=== PATIENT | female | born 1980 | race Hispanic/Latino ===

== ENCOUNTER 2022-04-04 13:48 | Emergency (ER) | payer BC, OTHER ==
[2022-04-04 15:07] LABS: #Basophils 0.1 thou/uL (0.0-0.2); #Lymphocytes 3.2 thou/uL (1.20-3.40); #Monocytes 0.4 thou/uL (0.11-0.59); #Neutrophils 7.6 thou/uL (1.40-6.50); %Basophils 0.7 % (0.0-1.0); %Eosinophils 0.1 % (0.0-10.0); %Monocytes 3.4 % (0.0-10.0); %Neutrophils 67.8 % (42.0-75.0); Hemoglobin 14.1 g/dL (12.0-16.0); Mean Corpuscular Volume 84.9 fL (78.0-98.0); Mean Platelet Volume 7.6 fL (7.4-10.4); Platelet Count 327 thou/uL (130-400); RBC Distribution Width 14.8 % (11.5-14.5); Red Blood Cell (RBC) Count 5.03 mill/uL (4.20-5.40); White Blood Cell (WBC) Count 11.2 thou/uL (4.8-10.8)
[2022-04-04] MEDS ORDERED: Albuterol 200 PUFF (6.7GM INHALER) ONE (15:16)
[2022-04-04 15:55] LABS: Anion Gap 16 mmol/L (10-20); BUN (Urea Nitrogen) 10 mg/dL (7.0-18.7); Calc. Creatinine Clearance 0 mL/min (70-130); Carbon Dioxide 27 mmol/L (22-29); Chloride 99 mmol/L (98-107); Sodium 138 mmol/L (136-145)
[2022-04-04 15:56] LABS: ALT (SGPT) 24 U/L (8-55); AST (SGOT) 29 U/L (5-34); Alkaline Phosphatase 87 U/L (40-110); Bilirubin, Total 0.4 mg/dL (0.2-1.2); Estimated GFR 80; Globulin 4.4 g/dL (2.4-3.5); Glucose 124 mg/dL (70-105); Lipase 22 U/L (8-78); Protein, Total 8.4 g/dL (6.0-8.3)
== END 2022-04-04 17:03 | disposition home or self-care (01) ==
LOC: ERS 13:48
DX: I49.3 Ventricular premature depolarization (principal)
CPT/HCPCS: 71045; 80053; 83690; 83880; 84484; 85025; 93005

== ENCOUNTER 2024-01-08 10:39 | Outpatient (CLI) | payer BC | END 2024-01-08 10:40 | disposition home or self-care (01) | LOC: DTY/OP 10:39 | PROVIDERS: ATTEND Surgery | DX: E66.01 Morbid (severe) obesity due to excess calories (principal) | CPT/HCPCS: 97802 ==

== ENCOUNTER 2024-04-01 14:00 | Inpatient (IN) | payer BC ==
[2024-04-05] MEDS ORDERED: Rocuronium Bromide 10 MG/ML (10ML VIAL) ONE (06:35)
[2024-04-05] MEDS ORDERED: SUGAMMADEX SODIUM 200 MG/2 ML VIAL ONE ×2 (06:35→08:00)
[2024-04-05] MEDS ORDERED: Dexamethasone 4 mg/ml Vial ONE (06:35)
[2024-04-05] MEDS ORDERED: Lidocaine 1% PF 5 ML VIAL ONE (06:35)
[2024-04-05] MEDS ORDERED: Fentanyl 250 MCG/5 ML VIAL ONE (06:35)
[2024-04-05] MEDS ORDERED: Ondansetron PF 4 MG/2 ML Vial ONE ×2 (06:35→11:12)
[2024-04-05] MEDS ORDERED: PROPOFOL 20 ML ONE (06:35)
[2024-04-05] MEDS ORDERED: EPINEPHrine 1 MG/ML VIAL ONE (06:40)
[2024-04-05] MEDS ORDERED: Bupivacaine 0.25% HCL 30 ML VIAL ONE (06:40)
[2024-04-05] MEDS ORDERED: Sodium Chloride 0.9% 100 ML ONE (07:22)
[2024-04-05] MEDS ORDERED: Heparin 5,000 UNITS/ML VIAL ONE (07:22)
[2024-04-05] MEDS ORDERED: CEFAZOLIN 2 GM VIAL ONE (07:22)
[2024-04-05] MEDS ORDERED: Indocyanine Green 25 MG/10 ML VIAL ONE (07:25)
[2024-04-05] MEDS ORDERED: Ondansetron HCl/PF 4 MG/2 ML Vial IVP PRN (09:01)
[2024-04-05] MEDS ORDERED: Promethazine HCl 25 MG/ML VIAL IM PRN ×3 (09:01→09:44)
[2024-04-05] MEDS ORDERED: Ondansetron PF 4 MG/2 ML Vial IVP PRN ×2 (09:17→09:44)
[2024-04-05] MEDS ORDERED: diphenhydrAMINE 50 MG/ML VIAL IVP PRN ×2 (09:17→09:44)
[2024-04-05] MEDS ORDERED: Ipratropium/Albuterol 3 ML NEB NEB PRN (09:17)
[2024-04-05] MEDS ORDERED: Dextrose 5% in Water 1,000 ML IV PRN (09:17)
[2024-04-05] MEDS ORDERED: Glucagon 1 MG/ML KIT IM PRN (09:17)
[2024-04-05] MEDS ORDERED: Dextrose 50% Abboject 50 ML SYRINGE SLOW IVP PRN (09:17)
[2024-04-05] MEDS ORDERED: hydrALAZINE 20 MG/ML VIAL SLOW IVP PRN (09:17)
[2024-04-05] MEDS ORDERED: Acetaminophen W/ Codeine 5 ML UDCUP PO PRN (09:20)
[2024-04-05] MEDS ORDERED: fentaNYL PF 100 MCG/2 ML SYRINGE ONE (09:31)
[2024-04-05] MEDS ORDERED: diphenhydrAMINE 50 MG/ML VIAL IM PRN (09:44)
[2024-04-05] MEDS ORDERED: Naloxone HCl 0.4 mg/ml Vial IV PRN (09:44)
[2024-04-05] MEDS ORDERED: FENTANYL 500 MCG/10 ML VIAL 2,000 MCG in Sodium Chloride 0.9% 60 ML IV PRN (09:44)
[2024-04-05] MEDS ORDERED: diphenhydrAMINE 25 MG CAP PO PRN (09:44)
[2024-04-05] MEDS ORDERED: Communication Order-Pharmacy FS SCH (09:45)
[2024-04-05] MEDS ORDERED: fentaNYL 50 mcg/mL 1 mL Vial ONE (10:23)
[2024-04-05] MEDS ORDERED: D5 1/2 NS w/20 mEq KCL 1,000 ML ONE (13:56)
[2024-04-05] MEDS ORDERED: Ketorolac Tromethamine 30 MG (1 mL) VIAL ONE (14:02)
[2024-04-05] MEDS: Ketorolac Tromethamine 30 MG (1 mL) VIAL IVP SCH (15:21)
[2024-04-05] MEDS: D5 1/2 NS w/20 mEq KCL 1,000 ML IV SCH (16:07)
[2024-04-05] MEDS: CEFAZOLIN 2 GM in Sodium Chloride 0.9% 100 ML IVPB SCH (16:15)
[2024-04-05 16:50] VITALS: BMI 62.6
[2024-04-06] MEDS: Enoxaparin 40 MG (0.4 mL) SYRINGE SC SCH (05:44)
[2024-04-06 06:07] VITALS: TEMP 98.5
[2024-04-06 06:15] LABS: #Basophils Less than 0.03 10x3/uL (0.0-0.2); #Eosinphils Less than 0.03 10x3/uL (0.0-0.7); %Basophils 0.1 % (0.0-1.0); %Eosinophils 0.1 % (0.0-10.0); %Lymphocytes 20.1 % (21.0-51.0); %Monocytes 6.8 % (0.0-10.0); %Neutrophils 72.7 % (42.0-75.0); Hematocrit 40.4 % (36.0-47.0); Hemoglobin 13.4 g/dL (12.0-16.0); Mean Corpuscular HGB CONC 33.2 g/dL (32.0-36.0); Mean Corpuscular Hemoglobin 28.4 pg (27.0-31.0); Mean Corpuscular Volume 85.6 fL (78.0-98.0); Mean Platelet Volume 9.8 fL (7.4-10.4); Platelet Count 288 10x3/uL (130-400); RBC Distribution Width 14.7 % (11.5-14.5); Red Blood Cell (RBC) Count 4.72 mill/uL (4.20-5.40)
[2024-04-06 06:33] LABS: Anion Gap 14 mmol/L (10-20); BUN (Urea Nitrogen) 7 mg/dL (7.0-18.7); Calc. Creatinine Clearance 205 mL/min (70-130); Calcium 8.8 mg/dL (7.8-10.44); Carbon Dioxide 24 mmol/L (22-29); Chloride 103 mmol/L (98-107); Estimated GFR 93; Glucose 172 mg/dL (70-105); Potassium 3.8 mmol/L (3.5-5.1); Sodium 137 mmol/L (136-145)
[2024-04-06] MEDS: Pantoprazole 40 MG VIAL IVP SCH (08:55)
[2024-04-06] MEDS: Acetaminophen W/ Codeine 5 ML UDCUP PO PRN (08:55)
[2024-04-06 11:48] VITALS: BP 144/89
[2024-04-07] MEDS ORDERED: Enoxaparin 40 MG (0.4 mL) SYRINGE SC SCH (09:00)
== END 2024-04-06 16:33 | disposition home or self-care (01) | DRG 418 ==
LOC: SURG A 04-05 06:14
PROVIDERS: ADMIT Surgery; ATTEND Surgery
PROC: 0DB64Z3 Excision of Stomach, Percutaneous Endoscopic Approach, Vertical (ICD-10-PCS; principal; 2024-04-05)
PROC: 0FT44ZZ Resection of Gallbladder, Percutaneous Endoscopic Approach (ICD-10-PCS; 2024-04-05)
PROC: 8E0W4CZ Robotic Assisted Procedure of Trunk Region, Percutaneous Endoscopic Approach (ICD-10-PCS; 2024-04-05)
DX: K81.1 Chronic cholecystitis (principal); Z68.44 Body mass index [BMI] 60.0-69.9, adult; E66.01 Morbid (severe) obesity due to excess calories; Z79.899 Other long term (current) drug therapy; F41.9 Anxiety disorder, unspecified; E11.9 Type 2 diabetes mellitus without complications; F32.A Depression, unspecified; D64.9 Anemia, unspecified; Z98.51 Tubal ligation status; Z98.890 Other specified postprocedural states
CPT/HCPCS: 36415; 80048; 85025; 88304; 88307; 94760; C1889; J0171; J0665; J1100; J1644; J1650; J1885; J2405; J2470; J2704; J3010; J3480

== ENCOUNTER 2025-06-29 17:32 | Inpatient (IN) | payer BC ==
[~2025-06-29 17:32] MED LIST: GASTROGRAFIN 30 ML BOT ONE; Iopamidol-370 76% 500 ML MDV (1 ML CHARGE) ONE
[2025-06-29 18:38] LABS: #Basophils 0.04 10x3/uL (0.0-0.2); #Eosinophils Less than 0.03 10x3/uL (0.0-0.7); #Monocytes 0.40 10x3/uL (0.11-0.59); #Neutrophils 3.73 10x3/uL (1.40-6.50); %Basophils 0.5 % (0.0-1.0); %Eosinophils 0.1 % (0.0-10.0); %Lymphocytes 44.7 % (21.0-51.0); %Monocytes 5.3 % (0.0-10.0); %Neutrophils 49.1 % (42.0-75.0); Hematocrit 39.8 % (36.0-47.0); Hemoglobin 13.1 g/dL (12.0-16.0); Mean Corpuscular Hemoglobin 27.0 pg (27.0-31.0); Mean Corpuscular Volume 82.1 fL (78.0-98.0); Platelet Count 335 10x3/uL (130-400); Red Blood Cell (RBC) Count 4.85 mill/uL (4.20-5.40); White Blood Cell (WBC) Count 7.60 10x3/uL (4.8-10.8)
[2025-06-29 18:50] LABS: Bacteria/HPF None Seen HPF (None Seen); CAUTI Indications for Culture Pelvic or flank pain; Glucose, Urine (Dipstick) Normal (Negative); Leukocyte Negative Leu/uL (Negative); Protein, Urine (Dipstick) Negative (Neg-Trace); RBC/HPF None Seen HPF (0-3); Specific Gravity, Urine 1.004 (1.002-1.036); WBC/HPF None Seen HPF (0-3)
[2025-06-29 18:59] LABS: Anion Gap 15 mmol/L (10-20); Chloride 102 mmol/L (98-107); Potassium 3.9 mmol/L (3.5-5.1); Sodium 139 mmol/L (136-145)
[2025-06-29 19:00] LABS: Urine Culture Reflex No No
[2025-06-29 19:04] LABS: ALT (SGPT) 16 U/L (Less than 34); AST (SGOT) 27 U/L (11-34); Albumin 3.7 g/dL (3.1-4.5); Alkaline Phosphatase 75 U/L (40-110); BUN (Urea Nitrogen) 11 mg/dL (7.0-18.7); Bilirubin, Total 0.2 mg/dL (0.3-1.2); Calc. Creatinine Clearance 0 mL/min (70-130); Calcium 9.5 mg/dL (7.8-10.44); Globulin 3.8 g/dL (2.4-3.5); Glucose 96 mg/dL (70-105); Lipase 51 U/L (8-78); Magnesium 2.5 mg/dL (1.6-2.6)
[2025-06-29 19:06] LABS: BHCG - Serum Negative (NEGATIVE); Pregs Control Background? CLEAR/WHITE (CLR/WHITE); Pregs Control Bar Appear? YES (CONTROL BAR)
[2025-06-29 19:07] LABS: Carbon Dioxide 26 mmol/L (22-29)
[2025-06-29] MEDS ORDERED: Acetaminophen 325 MG TAB PO PRN (21:15)
[2025-06-29 22:07] VITALS: BMI 53.3
[2025-06-29] MEDS: Ondansetron PF 4 MG/2 ML Vial IVP PRN (22:18)
[2025-06-29] MEDS ORDERED: Guaifenesin DM 100-10/5 ML UDCUP PO PRN (23:29)
[2025-06-29] MEDS ORDERED: Calcium Carbonate 500 MG ChewTAB PO PRN (23:29)
[2025-06-29] MEDS ORDERED: Senokot S 8.6-50 MG TAB PO PRN (23:29)
[2025-06-29] MEDS ORDERED: Melatonin 3 MG TAB PO PRN (23:29)
[2025-06-29] MEDS ORDERED: Bisacodyl 10 MG SUPP PR PRN (23:29)
[2025-06-29] MEDS ORDERED: HYDROcodone/Acetaminophen 5/325 mg Tablet PO PRN (23:34)
[2025-06-30] MEDS: Ketorolac Tromethamine 30 MG (1 mL) VIAL IVP SCH (00:34)
[2025-06-30] MEDS: Simethicone Chewable 80 MG TAB PO SCH ×2 (02:00→09:36)
[2025-06-30 06:40] LABS: #Basophils Less than 0.03 10x3/uL (0.0-0.2); #Eosinophils Less than 0.03 10x3/uL (0.0-0.7); #Monocytes 0.37 10x3/uL (0.11-0.59); #Neutrophils 3.37 10x3/uL (1.40-6.50); %Basophils 0.3 % (0.0-1.0); %Eosinophils 0.3 % (0.0-10.0); %Lymphocytes 44.8 % (21.0-51.0); %Monocytes 5.4 % (0.0-10.0); %Neutrophils 49.1 % (42.0-75.0); Hematocrit 40.1 % (36.0-47.0); Hemoglobin 13.0 g/dL (12.0-16.0); Mean Corpuscular Hemoglobin 26.6 pg (27.0-31.0); Mean Corpuscular Volume 82.2 fL (78.0-98.0); Platelet Count 315 10x3/uL (130-400); Red Blood Cell (RBC) Count 4.88 mill/uL (4.20-5.40); White Blood Cell (WBC) Count 6.87 10x3/uL (4.8-10.8)
[2025-06-30 06:57] LABS: ALT (SGPT) 14 U/L (Less than 34); AST (SGOT) 18 U/L (11-34); Albumin 3.3 g/dL (3.1-4.5); Alkaline Phosphatase 69 U/L (40-110); Anion Gap 9 mmol/L (10-20); BUN (Urea Nitrogen) 11 mg/dL (7.0-18.7); Bilirubin, Total 0.3 mg/dL (0.3-1.2); Calc. Creatinine Clearance 206 mL/min (70-130); Calcium 8.8 mg/dL (7.8-10.44); Carbon Dioxide 26 mmol/L (22-29); Chloride 106 mmol/L (98-107); Globulin 3.4 g/dL (2.4-3.5); Glucose 86 mg/dL (70-105); Potassium 3.8 mmol/L (3.5-5.1); Sodium 137 mmol/L (136-145)
[2025-06-30] MEDS: Enoxaparin 40 MG (0.4 mL) SYRINGE SC SCH (09:35)
[2025-06-30] MEDS: Multivitamin W/ Minerals 1 TAB PO SCH (09:36)
[2025-06-30] MEDS: Ondansetron PF 4 MG/2 ML Vial IVP PRN (13:38)
[2025-06-30] MEDS: FLU (Fluarix Triv) 25-26 (6MOS UP)/PF 45 MCG/0.5 ML Syringe IM ONE (18:43)
[2025-06-30] MEDS: Pantoprazole 40 MG DR.TAB PO SCH (21:34)
[2025-07-01] MEDS: diphenhydrAMINE 50 MG/ML VIAL IVP SCH
[2025-07-01 08:59] VITALS: BP 171/91; TEMP 97.7
== END 2025-07-01 15:17 | disposition home or self-care (01) | DRG 815 ==
LOC: ERS 17:32 → SURG B 20:53 → OBSVTOIN 06-30 17:25
PROVIDERS: ADMIT Internal Medicine; ATTEND Internal Medicine
DX: D73.5 Infarction of spleen (principal); Z68.43 Body mass index [BMI] 50.0-59.9, adult; F10.90 Alcohol use, unspecified, uncomplicated; I25.10 Atherosclerotic heart disease of native coronary artery without angina pectoris; E66.01 Morbid (severe) obesity due to excess calories; M79.7 Fibromyalgia; F41.9 Anxiety disorder, unspecified; F32.A Depression, unspecified; E11.9 Type 2 diabetes mellitus without complications; E86.0 Dehydration; G89.29 Other chronic pain; Z98.890 Other specified postprocedural states; Z98.84 Bariatric surgery status; Z90.49 Acquired absence of other specified parts of digestive tract; Z98.51 Tubal ligation status; Z88.5 Allergy status to narcotic agent; Z88.8 Allergy status to other drugs, medicaments and biological substances; Z79.899 Other long term (current) drug therapy
CPT/HCPCS: 36415; 71045; 74177; 80053; 81001; 83690; 83735; 84484; 84703; 85025; 93005; 96374; 96375; J1200; J1650; J1885; J2270; J2405; J7030; Q0162; Q9963; Q9967